=== PATIENT | male | born 2000 ===

== ENCOUNTER 2022-04-26 22:39 | Observation (INO) | payer SELFPAY ==
[~2022-04-26] VITALS: Ht 172.7 cm; Wt 67.0 kg
[2022-04-26 23:04] VITALS: BP 125/77; PULSE 61; TEMP 98.1
--- NOTE | 2022-04-26 23:30 | NUR ---
PT. TO ROOM 330 FOR PERRECTAL ABSCESS. ADMISSION ASSESSMENT COMPLETE. A&O. COMPLAINING OF PAIN 5/10 TO LEFT GROIN. ORIENTED TO ROOM. CALL LIGHT IN REACH. NO FURHTER NEEDS AT THIS TIME.
[2022-04-27] VITALS (11 sets, daily range): BP systolic 102–137; BP diastolic 50–76; PULSE 50–82; TEMP 97.8–98.6
--- NOTE | 2022-04-27 08:42 | NUR ---
PT RESTING IN BED WAITING TO SEE PHYSICIAN. PAIN CONTROLLED WITH PO MEDS AT THIS TIME. PT IS TRAINING @ [facility] WITH [facility]. PT IS FROM [place]. PT HAS VISITOR "TAZ CHANG" IN ROOM WITH HIM.
--- NOTE | 2022-04-27 08:46 | NUR ---
PT HAS BEEN NPO [id number] 04/26/22.
--- NOTE | 2022-04-27 09:33 | NUR ---
CHANO met with the patient and his friend, Sabine, to discuss discharge plan. The patient is in the [employer] and from [place]. He states that he is at [place] for two weeks for work. He reports independence with ADLs and does not have any DME. The patient states that he does not have a PCP at this time. 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 He plans to obtain his ID/policy number and provide it to surgical unit or notify this SW. The patient does not have a DPOA-HC and he was not interested in completing one at this time. He states that he is not and does not have any children. His mother, Latonya (ph#[phone]), is his next of kin. The patient plans to return back to [place] upon discharge. No additional needs at this time. *Discharge plan: [place]*
--- NOTE | 2022-04-27 09:55 | NUR ---
Initial visit; Patient and significant other thanked Assistant Manager Bilingual for looking in on him and offering God's blessings. 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 He is doing better now having gotten pain meds. Assistant Manager Bilingual will continue to look in on him.
--- NOTE | 2022-04-27 14:36 | NUR ---
PT TO SURGERY AT THIS TIME. CONSENT SIGNED ON CHART.
--- NOTE | 2022-04-27 16:27 | NUR ---
PT TO ROOM 330 PER BED WITH REPORT FROM [facility] @ [id number]. PT IS A/O X4 DENIES PAIN AT THIS TIME. IV TO PUMP PER ORDERS. PT REQUESTING WATER WHICH WAS PROVIDED. YOJANA AT BEDSIDE.
[2022-04-27] MEDS ORDERED: NORCO 325 MG-51 TAB PO (16:42)
--- NOTE | 2022-04-27 19:30 | NUR ---
ASSESSMENT COMPLETE. PT. A&O. PT. HAS URINATED. DISCHARGE INSTRUCTIONS WERE GIVEN. QUESTIONS WERE INVITED AND ANSWERED. INT REMOVED. PT. WAITING FOR RIDE. NO FURHTER NEEDS AT THIS TIME. CALL LIGHT IN REACH.
--- NOTE | 2022-04-27 21:03 | NUR ---
PT. 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 CALLED. SEE CHART FOR ORDERS. HOME PACK AND EDUCATIONPROVIDED TO PT. FURTHER QUESTIONS WERE ANSWERED. PT. DISCHARGED.
== END 2022-04-27 21:00 | disposition home or self-care (01) ==
LOC: SURG 22:39
PROVIDERS: ADMIT Surgery
DX: K61.0 Anal abscess (principal)
CPT/HCPCS: G0378; J0690; J1100; J1885; J1956; J2250; J2405; J2704; J3010; J7120